=== PATIENT | male | born 1995 | race Caucasian/White ===

== ENCOUNTER 2019-01-27 17:59 | Emergency (ER) | payer OTHER ==
[2019-01-27 18:26] VITALS: RESP 16
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
[2019-01-27 20:08] VITALS: BP 126/78; PULSE 62; TEMP 98.1
== END 2019-01-27 20:07 | disposition home or self-care (01) ==
LOC: EC 17:59
DX: F41.9 Anxiety disorder, unspecified (principal); F32.9 Major depressive disorder, single episode, unspecified; R45.4 Irritability and anger; R45.851 Suicidal ideations; K21.9 Gastro-esophageal reflux disease without esophagitis; Z87.891 Personal history of nicotine dependence; Z79.899 Other long term (current) drug therapy
CPT/HCPCS: 99285

== ENCOUNTER 2019-02-14 12:02 | Inpatient (IN) | payer MEDICAID, OTHER ==
--- NOTE | 2019-02-14 12:41 | ED ---
General Adult HPI - General Chief complaint: Psychiatric Symptoms Stated complaint: Mental Health Time Seen by Provider: 02/14/19 12:11 Source: patient, RN notes reviewed Mode of arrival: ambulatory Limitations: no limitations - History of Present Illness Initial comments: 23-year-old male presents for evaluation of suicidal ideation. Patient has had ongoing suicidal thoughts for one year however over the past several days this has intensified. He's had thoughts of harming himself as well as his brother. He plans to cut himself in an attempt at suicide. Denies any self injury today. Denies any ingestion. Denies alcohol. He is currently on Zoloft which she states she has prescribed. He does have previous psychiatric history and has been evaluated in the emergency department with suicidal ideation previously. - Related Data Home Medications Medication Instructions Recorded Confirmed Omeprazole 20 mg PO DAILY PRN 01/27/19 02/14/19 Sertraline [Zoloft] 50 mg PO DAILY 01/27/19 02/14/19 Allergies Allergy/AdvReac Type Severity Reaction Status Date / Time No Known Allergies Allergy Verified 02/14/19 13:18 Review of Systems ROS Statement: Those systems with pertinent positive or pertinent negative responses have been documented in the HPI. ROS Other: All systems not noted in ROS Statement are negative. Past Medical History Past Medical History: GERD/Reflux History of Any Multi-Drug Resistant Organisms: None Reported Past Surgical History: Coronary Bypass/CABG Additional Past Surgical History / Comment(s): mastoid cyst and cabg as Past Psychological History: Depression Smoking Status: Former smoker Past Alcohol Use History: None Reported Past Drug Use History: Marijuana General Exam Limitations: no limitations General appearance: alert, in no apparent distress Head exam: Present: atraumatic, normocephalic Eye exam: Present: normal appearance, PERRL ENT exam: Present: normal exam Neck exam: Present: normal inspection. Absent: tenderness, meningismus Respiratory exam: Present: normal lung sounds bilaterally. Absent: respiratory distress, wheezes Cardiovascular Exam: Present: regular rate, normal rhythm GI/Abdominal exam: Present: soft. Absent: distended, tenderness, guarding Extremities exam: Present: normal inspection, normal capillary refill. Absent: pedal edema Neurological exam: Present: alert, oriented X3, CN II-XII intact. Absent: motor sensory deficit Psychiatric exam: Present: depressed, suicidal ideation Skin exam: Present: warm, dry, intact. Absent: cyanosis, diaphoretic Course Vital Signs 02/14/19 12:09 Temperature 98.5 F Pulse Rate 88 Respiratory 16 Rate Blood Pressure 127/62 O2 Sat by Pulse 98 Oximetry - Reevaluation(s) Reevaluation #1: 02/14/19 12:40 Patient medically cleared awaiting EPS evaluation. Medical Decision Making - Medical Decision Making 23-year-old male presenting for suicidal ideation depression. Patient is medically cleared. He was evaluated by EPS, will be admitted for further psychiatric evaluation and treatment Disposition Clinical Impression: Depression, Suicidal ideation Disposition: ADMITTED IP TO THIS [facility] Condition: Stable Is patient prescribed a controlled substance at d/c from ED?: No Decision to Admit Reason: Admit from EC Decision Date: 02/14/19 Decision Time: 14:38
[2019-02-14] MEDS ORDERED: MAGNESIUM HYDROXIDE 2,400 MG/10 ML CUP PO PRN (13:51)
[2019-02-14] MEDS ORDERED: MAG HYDROX/AL HYDROX/SIMETH 30 ML CUP PO PRN (13:51)
[2019-02-14] MEDS ORDERED: ACETAMINOPHEN TAB 325 MG TAB PO PRN (13:51)
[2019-02-14] MEDS ORDERED: LORazepam 1 MG TAB PO PRN (13:51)
[2019-02-14] MEDS ORDERED: NICOTINE 14MG/24HR PATCH TRANSDERM STA (16:13)
[2019-02-15 11:18] LABS: HCT 53.1 % (39.0-53.0); HGB 17.6 gm/dL (13.0-17.5); MCH 28.8 pg (25.0-35.0); MCHC 33.2 g/dL (31.0-37.0); MCV 86.6 fL (80.0-100.0); Mean Platelet Volume 7.1; Platelet Count 180 k/uL (150-450); RBC 6.13 m/uL (4.30-5.90); RDW 13.1 % (11.5-15.5); WBC 3.9 k/uL (3.8-10.6)
[2019-02-15 11:29] LABS: ALT 24 U/L (21-72); AST 19 U/L (17-59); Albumin 5.2 g/dL (3.5-5.0); Alkaline Phosphatase 73 U/L (38-126); Anion Gap 9 mmol/L; Blood Urea Nitrogen 16 mg/dL (9-20); Calcium 10.3 mg/dL (8.4-10.2); Carbon Dioxide 30 mmol/L (22-30); Chloride 103 mmol/L (98-107); Cholesterol 164 mg/dL (<200); Glucose 80 mg/dL (74-99); HDL Cholesterol 46 mg/dL (40-60); LDL Cholesterol,Calculated 102 mg/dL (0-99); Potassium 4.3 mmol/L (3.5-5.1); Sodium 142 mmol/L (137-145); Total Bilirubin 1.8 mg/dL (0.2-1.3); Triglycerides 81 mg/dL (<150)
[2019-02-15 12:33] LABS: Band Neutrophils % 2 %; Lymphocytes # (M) 0.43 k/uL (1.0-4.8); Monocytes # (M) 0.31 k/uL (0-1.0); Neutrophils % (M) 74 %; Nucleated Red Blood Cells 0 /100 WBC (0-0); Total Cells Counted 100
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
[2019-02-15 18:19] LABS: Hemoglobin A1C 5.3 % (4.0-6.0)
[2019-02-15] MEDS ORDERED: lamoTRIgine 25 MG TAB PO SCH (21:00)
[2019-02-15] MEDS ORDERED: SERTRALINE 25 MG TAB PO SCH (21:00)
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
[2019-02-16] MEDS: NICOTINE 21MG/24HR PATCH TRANSDERM SCH (14:48)
[2019-02-16] MEDS: SERTRALINE 100 MG TAB PO SCH (20:52)
[2019-02-16] MEDS: lamoTRIgine 25 MG TAB PO SCH (20:52)
[2019-02-17 06:45] VITALS: PULSE 68; RESP 16
[2019-02-17] MEDS: NICOTINE 21MG/24HR PATCH TRANSDERM SCH (09:16)
[2019-02-17] MEDS: lamoTRIgine 25 MG TAB PO SCH (09:17)
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
[2019-02-17] MEDS ORDERED: PANTOPRAZOLE 40 MG TABLET PO PRN (17:19)
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
[2019-02-17] MEDS: lamoTRIgine 100 MG TAB PO SCH (20:53)
[2019-02-17] MEDS: SERTRALINE 100 MG TAB PO SCH (20:53)
[2019-02-17] MEDS: SYMBICORT 160-4.5 MCG INHALER INHALATION SCH (21:02)
[2019-02-17] MEDS: ALBUTEROL INHALER 60 PUFF/8 GM INHALER INHALATION SCH (21:02)
[2019-02-18 06:52] VITALS: BP 117/73; TEMP 97.9
[2019-02-18] MEDS: lamoTRIgine 100 MG TAB PO SCH (08:57)
[2019-02-18] MEDS: NICOTINE 21MG/24HR PATCH TRANSDERM SCH (08:57)
[2019-02-18] MEDS: ALBUTEROL INHALER 60 PUFF/8 GM INHALER INHALATION SCH ×2 (09:17→13:23)
[2019-02-18] MEDS: SYMBICORT 160-4.5 MCG INHALER INHALATION SCH (09:17)
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
== END 2019-02-18 14:49 | disposition home or self-care (01) | DRG 881 ==
LOC: EC 12:02 → 3MHU 13:36
PROVIDERS: ADMIT Psychiatry & Neurology Psychiatry; ATTEND Psychiatry & Neurology Psychiatry
DX: F32.9 Major depressive disorder, single episode, unspecified (principal); R45.851 Suicidal ideations; J45.901 Unspecified asthma with (acute) exacerbation; F41.9 Anxiety disorder, unspecified; K21.9 Gastro-esophageal reflux disease without esophagitis; R45.850 Homicidal ideations; X58.XXXA Exposure to other specified factors, initial encounter; Y93.83 Activity, rough housing and horseplay; Z79.899 Other long term (current) drug therapy; Z95.1 Presence of aortocoronary bypass graft; F19.10 Other psychoactive substance abuse, uncomplicated; F17.210 Nicotine dependence, cigarettes, uncomplicated
CPT/HCPCS: 80053; 80061; 82075; 83036; 84443; 85025; 99285

== ENCOUNTER 2019-06-07 11:19 | Emergency (ER) | payer OTHER ==
[2019-06-07 11:38] VITALS: RESP 18; TEMP 98.5
--- NOTE | 2019-06-07 12:15 | ED ---
General Adult HPI - General Chief complaint: Psychiatric Symptoms Stated complaint: Depression Time Seen by Provider: 06/07/19 11:44 Source: patient, RN notes reviewed Mode of arrival: ambulatory Limitations: no limitations - History of Present Illness Initial comments: Patient is a pleasant 23-year-old male presenting to the emergency Department with complaints of depression. Patient lost his job and lost his residence. Patient was staying with people that are bad for him. Patient does have suicidal thoughts. Patient did attempt to kill himself by drinking in breathing only nicotine and not oxygen approximately 10 days ago. No homicidal thoughts. No physical complaints. Occasional alcohol use. Patient has medical marijuana card, otherwise no street drugs. Patient does have a sort of auditory hallucination where he hears himself trying him for things that are wrong with him. - Related Data Home Medications Medication Instructions Recorded Confirmed Sertraline [Zoloft] 100 mg PO DAILY@2100 06/07/19 06/07/19 Laura's Wort 150 mg PO DAILY 06/07/19 06/07/19 Previous Rx's Medication Instructions Recorded lamoTRIgine [LaMICtal] 100 mg PO BID 30 Days #60 tab 02/18/19 Allergies Allergy/AdvReac Type Severity Reaction Status Date / Time No Known Allergies Allergy Verified 06/07/19 11:49 Review of Systems ROS Statement: Those systems with pertinent positive or pertinent negative responses have been documented in the HPI. ROS Other: All systems not noted in ROS Statement are negative. Constitutional: Denies: fever Eyes: Denies: eye pain ENT: Denies: ear pain Respiratory: Denies: cough Cardiovascular: Denies: chest pain Endocrine: Denies: fatigue Gastrointestinal: Denies: abdominal pain Genitourinary: Denies: dysuria Musculoskeletal: Denies: back pain Skin: Denies: rash Neurological: Denies: weakness Psychiatric: Reports: as per HPI, depression, suicidal thoughts Past Medical History Past Medical History: GERD/Reflux History of Any Multi-Drug Resistant Organisms: None Reported Past Surgical History: Coronary Bypass/CABG Additional Past Surgical History / Comment(s): mastoid cyst and cabg as Past Psychological History: Depression Smoking Status: Former smoker Past Alcohol Use History: None Reported Past Drug Use History: Marijuana General Exam Limitations: no limitations General appearance: alert, in no apparent distress Head exam: Present: atraumatic Eye exam: Present: normal appearance Neck exam: Present: normal inspection Respiratory exam: Present: normal lung sounds bilaterally Cardiovascular Exam: Present: regular rate, normal rhythm GI/Abdominal exam: Present: soft. Absent: tenderness Extremities exam: Present: normal inspection Neurological exam: Present: alert Psychiatric exam: Present: depressed Skin exam: Present: normal color Course Vital Signs 06/07/19 11:34 Temperature 98.5 F Pulse Rate 85 Respiratory 18 Rate Blood Pressure 100/61 O2 Sat by Pulse 100 Oximetry Medical Decision Making - Medical Decision Making Patient was seen by mental health services with plan for discharge. They did arrange follow-up. Patient reevaluated and does contract for safety. Disposition Clinical Impression: Depression Disposition: HOME SELF-CARE Condition: Stable Instructions (If sedation given, give patient instructions): Depression (ED) Additional Instructions: Please follow-up with [facility] tomorrow as directed. Please also follow-up with primary care physician. Return for worsening symptoms, thoughts of self-harm, or other concerns. Is patient prescribed a controlled substance at d/c from ED?: No Referrals: Armand Tilley MD [Primary Care Provider] - 1-2 days Time of Disposition: 13:38
[2019-06-07 14:10] VITALS: BP 102/58; PULSE 75
== END 2019-06-07 14:05 | disposition home or self-care (01) ==
LOC: EC 11:19
DX: F32.9 Major depressive disorder, single episode, unspecified (principal); R45.851 Suicidal ideations; R44.0 Auditory hallucinations; Z95.1 Presence of aortocoronary bypass graft; Z87.891 Personal history of nicotine dependence; Z79.899 Other long term (current) drug therapy
CPT/HCPCS: 82075; 99284

== ENCOUNTER 2019-06-17 23:00 | Emergency (ER) | payer OTHER ==
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
--- NOTE | 2019-06-18 00:58 | XR ---
EXAM: XR Right Hand Complete, 3 or More Views CLINICAL HISTORY: ITS.REASON XR Reason: Pain TECHNIQUE: Frontal, lateral and oblique views of the right hand. COMPARISON: None. FINDINGS: Bones/joints: Unremarkable. No acute fracture. No dislocation. Soft tissues: Unremarkable. No radiopaque foreign body. IMPRESSION: No acute osseous abnormality. If there is clinical concern for radiographically occult fracture, consider repeat radiographs in 7-10 days.
[2019-06-18] MEDS ORDERED: IBUPROFEN 600 MG TAB PO STA (05:19)
[2019-06-18 06:12] VITALS: BP 120/82; PULSE 78; RESP 18; TEMP 98
== END 2019-06-18 06:31 | disposition home or self-care (01) ==
LOC: EC 23:00
DX: S69.91XA Unspecified injury of right wrist, hand and finger(s), initial encounter (principal); F39 Unspecified mood [affective] disorder; R45.851 Suicidal ideations; F17.200 Nicotine dependence, unspecified, uncomplicated; Z79.899 Other long term (current) drug therapy; X83.8XXA Intentional self-harm by other specified means, initial encounter; Y92.009 Unspecified place in unspecified non-institutional (private) residence as the place of occurrence of the external cause
CPT/HCPCS: 82075; 99284

== ENCOUNTER 2021-08-09 02:20 | Emergency (ER) | payer OTHER ==
[2021-08-09 02:26] VITALS: BP 133/85; PULSE 74; RESP 16; TEMP 98.7
[2021-08-09] MEDS ORDERED: TOPICAL SKIN ADHESIVE 1 EACH AMP TOPICAL ONE (02:38)
[2021-08-09] MEDS ORDERED: DIPH,PERTUS(ACELL)TETVAC-LF 0.5 ML VIAL IM ONE (02:41)
--- NOTE | 2021-08-09 03:06 | ED ---
Fall HPI - General Chief Complaint: Fall Stated Complaint: Head laceration Time Seen by Provider: 08/09/21 02:32 Source: patient, EMS Mode of arrival: EMS - History of Present Illness Initial Comments: 's patient is a 25-year-old man who presents to be evaluate for scalp laceration. Patient had ground-level fall tonight and struck his head against furniture. No loss consciousness. Denies significant head or neck pain no other trauma. States last tetanus shot unknown. 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 Witnessed: no Place Fall Occurred: home Loss of Consciousness: none Prolonged Down Time?: no Symptoms Prior to Fall: none Location: head Severity: mild Context: tripped/slipped Associated Symptoms: denies - Related Data Home Medications Medication Instructions Recorded Confirmed Laura's Wort 150 mg PO DAILY 06/07/19 06/17/19 Previous Rx's Medication Instructions Recorded Ibuprofen [Motrin] 600 mg PO Q8HR PRN #20 tab 06/18/19 Allergies Allergy/AdvReac Type Severity Reaction Status Date / Time No Known Allergies Allergy Verified 06/17/19 23:21 Review of Systems ROS Statement: Those systems with pertinent positive or pertinent negative responses have been documented in the HPI. ROS Other: All systems not noted in ROS Statement are negative. Constitutional: Denies: fever, weakness Eyes: Denies: eye pain, vision change ENT: Denies: ear pain, hearing loss, epistaxis Respiratory: Denies: dyspnea Cardiovascular: Denies: chest pain, syncope Gastrointestinal: Denies: abdominal pain, vomiting Skin: Reports: as per HPI Neurological: Denies: headache Past Medical History Past Medical History: GERD/Reflux History of Any Multi-Drug Resistant Organisms: None Reported Past Surgical History: Coronary Bypass/CABG Additional Past Surgical History / Comment(s): mastoid cyst and cabg as infant Past Psychological History: Bipolar, Depression Smoking Status: Vaper Past Alcohol Use History: None Reported Past Drug Use History: Marijuana General Exam Limitations: no limitations General appearance: alert, in no apparent distress Head exam: Present: normocephalic, other (Proximally 3 cm laceration to scalp. No bony tenderness or deformity) Eye exam: Present: normal appearance, PERRL, EOMI. Absent: scleral icterus, conjunctival injection, nystagmus ENT exam: Present: normal oropharynx, TM's normal bilaterally Neck exam: Present: normal inspection, full ROM. Absent: tenderness Respiratory exam: Present: normal lung sounds bilaterally. Absent: respiratory distress, wheezes, rales, rhonchi, stridor, chest wall tenderness Cardiovascular Exam: Present: regular rate, normal rhythm, normal heart sounds. Absent: systolic murmur, diastolic murmur, rubs, gallop Neurological exam: Present: alert, oriented X3, CN II-XII intact. Absent: motor sensory deficit Skin exam: Present: warm, dry, intact, normal color, other (Laceration as above) Course Vital Signs 08/09/21 02:22 Temperature 98.7 F Pulse Rate 74 Respiratory 16 Rate Blood Pressure 133/85 O2 Sat by Pulse 97 Oximetry Procedures - Laceration Laceration #1 Consent Obtained: verbal consent Indication: laceration Site: scalp Size (cm): 3 Description: linear Depth: simple, single layer Type of Sutures: other (Skin adhesive) Patient Tolerated Procedure: well, no complications Disposition Clinical Impression: Fall, Scalp laceration Disposition: HOME SELF-CARE Condition: Good Instructions (If sedation given, give patient instructions): Skin Adhesive Care (ED) Is patient prescribed a controlled substance at d/c from ED?: No Referrals: Miguel Lua Jr, [Primary Care Provider] - 1-2 days
== END 2021-08-09 03:28 | disposition home or self-care (01) ==
LOC: EC 02:20
DX: S01.01XA Laceration without foreign body of scalp, initial encounter (principal); F17.290 Nicotine dependence, other tobacco product, uncomplicated; F12.90 Cannabis use, unspecified, uncomplicated; Z79.1 Long term (current) use of non-steroidal anti-inflammatories (NSAID); W01.190A Fall on same level from slipping, tripping and stumbling with subsequent striking against furniture, initial encounter; Y92.009 Unspecified place in unspecified non-institutional (private) residence as the place of occurrence of the external cause
CPT/HCPCS: 12002; 90471; 90715; 99284

== ENCOUNTER 2022-02-01 11:55 | Inpatient (IN) | payer MEDICAID, OTHER ==
--- NOTE | 2022-02-01 12:31 | ED ---
General Adult HPI - General Chief complaint: Psychiatric Symptoms Stated complaint: Mental Health Time Seen by Provider: 02/01/22 12:20 Source: patient, RN notes reviewed, old records reviewed Mode of arrival: ambulatory Limitations: no limitations - History of Present Illness Initial comments: This is a well-appearing 26-year-old male that presents to the emergency room with complaints of depression and suicidal ideation. Patient states he does not have a plan. He was in the hospital last week [facility] for the same depression but states was only given phone number for mobile crisis. He does have an appointment on the of this month. Patient states that he does need medication for his bipolar and his depression but is currently not taking a nything. He does smoke marijuana occasionally but he denies any alcohol or other drug use. Denies any fevers, no nausea vomiting diarrhea. He states he has had this increased stress with a baby. He does live with baby and mom. He was brought in by his mother and is being petitioned per nurse. -: week(s) (1) Severity scale (1-10): 0 Associated Symptoms: denies other symptoms Treatments Prior to Arrival: none - Related Data Home Medications Medication Instructions Recorded Confirmed No Known Home Medications 02/01/22 02/01/22 Allergies Allergy/AdvReac Type Severity Reaction Status Date / Time No Known Allergies Allergy Verified 02/01/22 16:27 Review of Systems ROS Statement: Those systems with pertinent positive or pertinent negative responses have been documented in the HPI. ROS Other: All systems not noted in ROS Statement are negative. Past Medical History Past Medical History: GERD/Reflux History of Any Multi-Drug Resistant Organisms: None Reported Past Surgical History: Coronary Bypass/CABG Additional Past Surgical History / Comment(s): mastoid cyst and cabg as Past Psychological History: Bipolar, Depression Smoking Status: Vaper Past Alcohol Use History: Rare Past Drug Use History: Marijuana General Exam Limitations: no limitations General appearance: alert, in no apparent distress Head exam: Present: atraumatic, normocephalic, normal inspection Eye exam: Present: normal appearance. Absent: scleral icterus, conjunctival injection ENT exam: Present: normal exam, normal oropharynx, mucous membranes moist Neck exam: Present: normal inspection, full ROM. Absent: tenderness, meningismus Respiratory exam: Present: normal lung sounds bilaterally. Absent: respiratory distress, accessory muscle use Cardiovascular Exam: Present: regular rate GI/Abdominal exam: Present: soft. Absent: distended, tenderness Extremities exam: Present: normal capillary refill Back exam: Present: normal inspection, full ROM. Absent: tenderness, CVA tenderness (R), CVA tenderness (L), rash noted Neurological exam: Present: alert, oriented X3, normal gait Psychiatric exam: Present: depressed, suicidal ideation. Absent: agitated, anxious, flat affect, homicidal ideation Skin exam: Present: warm, dry, normal color. Absent: cyanosis, diaphoretic Course Vital Signs 02/01/22 02/01/22 12:14 14:00 Temperature 98.2 F Pulse Rate 70 76 Respiratory 16 18 Rate Blood Pressure 121/82 124/88 O2 Sat by Pulse 97 98 Oximetry Medical Decision Making - Medical Decision Making 26-year-old male presents with depression and suicidal ideation. He denies any plan. He was petitioned by his mother for inpatient treatment. Case was signed out to Dr. Mathias. Disposition Referrals: Miguel Lua Jr, [Primary Care Provider] - 1-2 days
[2022-02-01] MEDS ORDERED: MAG HYDROX/AL HYDROX/SIMETH 30 ML CUP PO PRN (20:55)
[2022-02-01] MEDS ORDERED: MAGNESIUM HYDROXIDE 2,400 MG/10 ML CUP PO PRN (20:55)
[2022-02-01] MEDS ORDERED: HALOPERIDOL LACTATE 5 MG/ML 1 ML VIAL IM PRN (20:55)
[2022-02-01] MEDS ORDERED: LORazepam 2 MG/ML INJ IM PRN (20:57)
[2022-02-01] MEDS ORDERED: haloperidoL 5 MG TAB PO PRN (20:58)
[2022-02-01] MEDS: NICOTINE 21MG/24HR PATCH TRANSDERM SCH (22:55)
[2022-02-02] MEDS: NICOTINE 21MG/24HR PATCH TRANSDERM SCH (08:42)
--- NOTE | 2022-02-02 10:24 | P.CONS ---
History of Present Illness - Reason for Consult Consult date: 02/02/22 Medical management of tobaccoism - History of Present Illness This is a 26-year-old male well-known to my practice. Recently celebrated the of her child 3 months ago. He indicates the stress of this and being without his medications has effected his bipolar depression. His had increased sadness issues with this. He was in the emergency room last week and given on for the mobile crisis Center. He does have an appointment next week with them, but his mood was quite significantly depressed. His mother brought him in the emergency room and was petitioning him due to his suicidal ideation. Medically he smokes cigarettes about a pack a day. We discussed this today. He does smoke marijuana on occasion. Review of Systems All systems: negative Past Medical History Past Medical History: GERD/Reflux History of Any Multi-Drug Resistant Organisms: None Reported Past Surgical History: Coronary Bypass/CABG Additional Past Surgical History / Comment(s): mastoid cyst and cabg as Past Anesthesia/Blood Transfusion Reactions: No Reported Reaction Past Psychological History: Bipolar, Depression Smoking Status: Vaper Past Alcohol Use History: Rare Past Drug Use History: Marijuana Additional Drug Use History / Comment(s): admits to using acid on a weekend basis. Last time used three months ago Medications and Allergies Home Medications Medication Instructions Recorded Confirmed Type No Known Home Medications 02/01/22 02/01/22 History Allergies Allergy/AdvReac Type Severity Reaction Status Date / Time No Known Allergies Allergy Verified 02/01/22 16:27 Physical Exam Vitals: Vital Signs Temp Pulse Pulse Resp BP BP Pulse Ox 02/02/22 06:51 97.8 F 68 96/56 99 02/02/22 06:49 97.8 F 68 96/56 99 02/01/22 22:15 97.7 F 69 20 121/77 02/01/22 20:55 78 16 138/92 98 02/01/22 14:00 76 18 124/88 98 02/01/22 12:14 98.2 F 70 16 121/82 97 Intake and Output 02/01/22 02/02/22 02/02/22 22:59 06:59 14:59 Other: Weight 72.575 kg GENERAL: Well-appearing, thin and in no acute distress. HEAD: Atraumatic, normocephalic. EYES: Pupils equal round and reactive to light, extraocular movements intact, sclera anicteric, conjunctiva are normal. ENT:nares patent, oropharynx clear without exudates. Moist mucous membranes. NECK: Normal range of motion, supple without lymphadenopathy or JVD, no thyromegaly LUNGS: Breath sounds clear to auscultation bilaterally and equal. No wheezes rales or rhonchi. HEART: Regular rate and rhythm without murmurs, rubs or gallops.S1S2 Normal ABDOMEN: Soft, nontender, normoactive bowel sounds. No guarding, no rebound. No masses appreciated. EXTREMITIES: Normal range of motion, no pitting or edema. No clubbing or cyanosis. NEUROLOGICAL: Cranial nerves II through XII grossly intact. Normal speech, normal gait. PSYCH: Normal mood, normal affect. SKIN: Warm, Dry, normal turgor, no rashes or lesions noted. Assessment and Plan (1) Major depression Current Visit: No Status: Acute Priority: Low Code(s): F32.9 - MAJOR DEPRESSIVE DISORDER, SINGLE EPISODE, UNSPECIFIED SNOMED Code(s): 655237348 (2) Suicidal ideation Current Visit: No Status: Acute Code(s): R45.851 - SUICIDAL IDEATIONS SNOMED Code(s): 2349734 (3) Cigarette nicotine dependence Current Visit: Yes Status: Acute Code(s): F17.210 - NICOTINE DEPENDENCE, CIGARETTES, UNCOMPLICATED SNOMED Code(s): 57650790 (4) Marijuana smoker Current Visit: Yes Status: Acute Code(s): F12.90 - CANNABIS USE, UNSPECIFIED, UNCOMPLICATED SNOMED Code(s): 495236835 Plan: Medically he appears stable, however there is no laboratory studies to evaluate his thyroid blood count and blood chemistries. These have been ordered but are pending. Staff have applied a nicotine patch We'll follow him with you as needed. Thank you very much for allowing us to participate in this patient's care.
[2022-02-02 11:49] LABS: ALT 13 U/L (4-49); AST 24 U/L (17-59); African American GFR (CKD) >90 (>60 ml/min/1.73 sqM); Alkaline Phosphatase 50 U/L (38-126); Anion Gap 9 mmol/L; Blood Urea Nitrogen 15 mg/dL (9-20); Calcium 9.8 mg/dL (8.4-10.2); Carbon Dioxide 30 mmol/L (22-30); Chloride 101 mmol/L (98-107); Glucose 97 mg/dL (74-99); Non-African American GFR(CKD) >90 (>60 ml/min/1.73 sqM); Potassium 4.7 mmol/L (3.5-5.1); Sodium 140 mmol/L (137-145); Total Bilirubin 2.5 mg/dL (0.2-1.3); Total Protein 7.9 g/dL (6.3-8.2)
[2022-02-02 11:53] LABS: Basophils # (A) 0.1 k/uL (0-0.2); Basophils % (A) 1 %; Eosinophils # (A) 0.1 k/uL (0-0.7); Eosinophils % (A) 1 %; HCT 53.7 % (39.0-53.0); HGB 18.1 gm/dL (13.0-17.5); Lymphocytes # (A) 1.3 k/uL (1.0-4.8); Lymphocytes % (A) 22 %; MCH 29.7 pg (25.0-35.0); MCHC 33.7 g/dL (31.0-37.0); MCV 88.2 fL (80.0-100.0); Mean Platelet Volume 7.6; Monocytes # (A) 0.5 k/uL (0-1.0); Monocytes % (A) 8 %; Neutrophils # (A) 3.9 k/uL (1.3-7.7); Neutrophils % (A) 65 %; Platelet Count 205 k/uL (150-450); RBC 6.08 m/uL (4.30-5.90); RDW 12.9 % (11.5-15.5)
[2022-02-02 13:55] LABS: Appearance,Urine Clear (Clear); Bilirubin,Urine Negative (Negative); Blood,Urine Negative (Negative); Color,Urine Yellow; Glucose,Urine (UA) Negative (Negative); Ketones,Urine Negative (Negative); Leukocyte Esterase,Urine Trace (Negative); Mucus,Urine Moderate /hpf; Nitrite,Urine Negative (Negative); Protein,Urine Negative (Negative); RBC,Urine <1 /hpf (0-5); Specific Gravity,Urine 1.026 (1.001-1.035); WBC,Urine 2 /hpf (0-5)
[2022-02-02] MEDS: ACETAMINOPHEN TAB 325 MG TAB PO PRN (15:31)
--- NOTE | 2022-02-02 17:04 | P.HP ---
Psychiatric H&P - . H&P Date: 02/02/22 History & Physical: IDENTIFYING DATA: Patient is a 26-year-old male brought to the ER by police on a petition. HPI: He is a 26-year-old male who was brought to the ER on a petition completed by his aunt. Per petition, quotation palmer trying to kill himself with a knife, harming others, putting his head open by pounding into the door frame trying to get others to harm him, bout of rage." Per clinical certificate completed in the emergency room, patient is "suicidal, stated he wanted to kill himself, depressed." On my assessment, patient is calm, cooperative and polite. He reports depressed mood, disrupted sleep, interest is affected but not drastically, energy is moderate to low, concentration is difficult to focus, appetite is fair. He was having suicidal ideations yesterday but denies suicidal ideations today. Denies excessive guilt. He reports high anxiety because this is the first time he has been away from his family since the baby was born. He denies auditory or visual hallucinations. He denies homicidal ideations, plan or intent. He denies ever having thoughts of harming others and reports his aunt must have just put that on the petition because she misunderstood what he said. PAST PSYCHIATRIC HISTORY: Diagnosis: Depression, anxiety, "bipolar-I don't remember", Borderline personality disorder Hospitalizations: 2019 - [facility] Outpatient: [facility]-appointment on 02/05/2022 Past Medications: Zoloft and Lamictal. He reports Lamictal was working but he stopped it because he ran out of it while in rehab. He reports the Lamictal helped with emotion regulation. He is not currently on any medications. He last took medications over a year ago. Past Medical History: None reported. Past Surgical History: VSD, ear surgery in childhood CURRENT MEDICATIONS: Active Medications Acetaminophen (Acetaminophen Tab 325 Mg Tab) 650 mg PO Q4HR PRN PRN Reason: Pain/Discomfort Last Admin: 02/02/22 15:31 Dose: 650 mg Documented by: Al Hydroxide/Mg Hydroxide (Mag Hydrox/Al Hydrox/Simeth 30 Ml Cup) 30 ml PO Q4HR PRN PRN Reason: GI Upset Haloperidol (Haloperidol 5 Mg Tab) 5 mg PO Q6HR PRN PRN Reason: Agitation or Acute Psychosis Haloperidol Lactate (Haloperidol Lactate 5 Mg/Ml 1 Ml Vial) 5 mg IM Q6HR PRN PRN Reason: Agitation or Acute Psychosis Lorazepam (Lorazepam 1 Mg Tab) 2 mg PO Q6HR PRN PRN Reason: Anxiety, Agitation Lorazepam (Lorazepam 2 Mg/Ml Inj) 2 mg IM Q6HR PRN PRN Reason: Agitation or Acute Anxiety Magnesium Hydroxide (Magnesium Hydroxide 2,400 Mg/10 Ml Cup) 2,400 mg PO DAILY PRN PRN Reason: Constipation Nicotine (Nicotine 21mg/24hr Patch) 1 patch TRANSDERM DAILY JAMES Last Admin: 02/02/22 08:42 Dose: 1 patch Documented by: ALLERGIES: Allergies No Known Allergies Allergy (Verified 02/01/22 16:27) CHEMICAL DEPENDENCY HISTORY: Historoy of using LSD, pills (anything I could get my hands on), alcohol from 2017- 2018. Currently uses marijuana once a week. FAMILY PSYCHIATRIC/SUBSTANCE USE HISTORY: Father is an alcoholic. SOCIAL HISTORY: Lives with bhanu and his 3 month old baby boy. MENTAL STATUS EXAM: General Appearance: Patient is a thin, male who appears his stated age. Patient appears to have fair grooming. Orientation: He is alert and oriented to person, place, time and situation. Behavior: Patient is seated without any agitated behavior. Average eye contact. Speech: Patient's speech is fluent and nonpressured. Mood/Affect: Patient reports his mood is depressed, affect is congruent. Suicidality/Homicidality: Patient denies having any suicidal or homicidal ideation intent or plan. Perceptions: Patient denies any visual hallucinations and denies any auditory hallucinations Though content/process: There is no evidence of any delusional thought content and thought process is linear and goal-directed. Memory and concentration: Intact Insight: fair Judgment: fair to poor STRENGTHS/WEAKNESSES: Strength is "I wear my hear on my sleeve, I care about people." Weakness is that "I have anger issues". INTELLECT: Average IMPRESSIONS: Major depressive disorder, recurrent, severe without psychotic features Unspecified anxiety disorder Borderline personality disorder PLAN: Patient has signed formal voluntary for admission to [facility] for stabilization of psychiatric symptoms and safety. Medications: Start Lexapro 5 mg QHS for depression/anxiety. Start Lamictal 25 mg QHS for mood. He will be continued on: Nicotine patch for nicotine replacement therapy. Haldol 5 mg by mouth/IM every 6 hours when necessary for severe agitation or acute psychosis. Ativan 2 mg by mouth/IM every 6 hours when necessary for severe agitation or acute anxiety. Educate on the importance of avoiding mood altering substances. Admission labs: CBC with differential, CMP, hemoglobin A1c, hepatic function panel, lipid panel, TSH and urinalysis. Internal medicine consult to perform medical evaluation and physical. Social work on board for discharge planning. Encourage patient to participate in groups and to work on coping skills. Arielle Narvaez MD Psychiatrist Allergies Allergy/AdvReac Type Severity Reaction Status Date / Time No Known Allergies Allergy Verified 02/01/22 16:27 Vital Signs Temp 97.8 F 02/02/22 06:51 Pulse 68 02/02/22 06:51 Resp 20 02/01/22 22:15 BP 96/56 02/02/22 06:51 Pulse Ox 99 02/02/22 06:51 Intake & Output 02/01/22 02/02/22 02/02/22 18:59 06:59 18:59 Weight 72.575 kg 72.575 kg Laboratory Last Values WBC 6.0 k/uL (3.8-10.6) 02/02/22 11:00 RBC 6.08 m/uL (4.30-5.90) H 02/02/22 11:00 Hgb 18.1 gm/dL (13.0-17.5) H 02/02/22 11:00 Hct 53.7 % (39.0-53.0) H 02/02/22 11:00 MCV 88.2 fL (80.0-100.0) 02/02/22 11:00 MCH 29.7 pg (25.0-35.0) 02/02/22 11:00 MCHC 33.7 g/dL (31.0-37.0) 02/02/22 11:00 RDW 12.9 % (11.5-15.5) 02/02/22 11:00 Plt Count 205 k/uL (150-450) 02/02/22 11:00 MPV 7.6 02/02/22 11:00 Neutrophils % 65 % 02/02/22 11:00 Lymphocytes % 22 % 02/02/22 11:00 Monocytes % 8 % 02/02/22 11:00 Eosinophils % 1 % 02/02/22 11:00 Basophils % 1 % 02/02/22 11:00 Neutrophils # 3.9 k/uL (1.3-7.7) 02/02/22 11:00 Lymphocytes # 1.3 k/uL (1.0-4.8) 02/02/22 11:00 Monocytes # 0.5 k/uL (0-1.0) 02/02/22 11:00 Eosinophils # 0.1 k/uL (0-0.7) 02/02/22 11:00 Basophils # 0.1 k/uL (0-0.2) 02/02/22 11:00 Sodium 140 mmol/L (137-145) 02/02/22 11:00 Potassium 4.7 mmol/L (3.5-5.1) 02/02/22 11:00 Chloride 101 mmol/L (98-107) 02/02/22 11:00 Carbon Dioxide 30 mmol/L (22-30) 02/02/22 11:00 Anion Gap 9 mmol/L 02/02/22 11:00 BUN 15 mg/dL (9-20) 02/02/22 11:00 Creatinine 0.96 mg/dL (0.66-1.25) 02/02/22 11:00 Est GFR (CKD-EPI)AfAm >90 (>60 ml/min/1.73 sqM) 02/02/22 11:00 Est GFR (CKD-EPI)NonAf >90 (>60 ml/min/1.73 sqM) 02/02/22 11:00 Glucose 97 mg/dL (74-99) 02/02/22 11:00 Calcium 9.8 mg/dL (8.4-10.2) 02/02/22 11:00 Total Bilirubin 2.5 mg/dL (0.2-1.3) H 02/02/22 11:00 AST 24 U/L (17-59) 02/02/22 11:00 ALT 13 U/L (4-49) 02/02/22 11:00 Alkaline Phosphatase 50 U/L (38-126) 02/02/22 11:00 Total Protein 7.9 g/dL (6.3-8.2) 02/02/22 11:00 Albumin 5.0 g/dL (3.5-5.0) 02/02/22 11:00 TSH 0.810 mIU/L (0.465-4.680) 02/02/22 11:00 Urine Color Yellow 02/02/22 13:40 Urine Appearance Clear (Clear) 02/02/22 13:40 Urine pH 6.0 (5.0-8.0) 02/02/22 13:40 Ur Specific [place] 1.026 (1.001-1.035) 02/02/22 13:40 Urine Protein Negative (Negative) 02/02/22 13:40 Urine Glucose (UA) Negative (Negative) 02/02/22 13:40 Urine Ketones Negative (Negative) 02/02/22 13:40 Urine Blood Negative (Negative) 02/02/22 13:40 Urine Nitrite Negative (Negative) 02/02/22 13:40 Urine Bilirubin Negative (Negative) 02/02/22 13:40 Urine Urobilinogen 3.0 mg/dL (<2.0) 02/02/22 13:40 Ur Leukocyte Esterase Trace (Negative) H 02/02/22 13:40 Urine RBC <1 /hpf (0-5) 02/02/22 13:40 Urine WBC 2 /hpf (0-5) 02/02/22 13:40 Urine Mucus Moderate /hpf (None) H 02/02/22 13:40 Coronavirus (PCR) Not Detected (Not Detectd) 02/01/22 18:30 02/02/22 16:29
[2022-02-02 20:26] LABS: Urine Alcohol Negative (Negative); Urine Barbiturate Negative (Negative); Urine Cocaine Negative (Negative); Urine Methadone Negative (Negative); Urine Opiates Negative (Negative); Urine Phencyclidine Negative (Negative)
[2022-02-02] MEDS ORDERED: ESCITALOPRAM 5 MG TAB PO SCH ×2 (21:00)
[2022-02-02] MEDS ORDERED: lamoTRIgine 25 MG TAB PO SCH (21:00)
[2022-02-02] MEDS: lamoTRIgine 25 MG TAB PO SCH (21:20)
[2022-02-02 23:15] LABS: Chol/HDL Ratio 3.31 Ratio; LDL Cholesterol,Calculated 94.9 mg/dL (0.0-131.0); VLDL Calculation 16.72 mg/dL (5.00-40.00)
[2022-02-03 07:08] VITALS: RESP 16
[2022-02-03] MEDS: NICOTINE 21MG/24HR PATCH TRANSDERM SCH (08:28)
[2022-02-03] MEDS ORDERED: lamoTRIgine 25 MG TAB PO SCH (09:00)
[2022-02-03] MEDS ORDERED: ESCITALOPRAM 5 MG TAB PO SCH (09:00)
--- NOTE | 2022-02-03 18:56 | P.PN ---
Progress Note - Text Progress Note Date: 02/03/22 Interval History: Jose was seen in the conference room. He presents with polite and cooperative demeanor. He reports he is a "little shook from what happened earlier", in regards to other patients having outbursts. He reports this increased his anxiety. He has started the Lamictal 25 mg QHS last night and denies any rash today. He also started the Lexapro 5 mg last night and denies medication side effects. He continues to endorse anxiety, reports his anxiety is worse than his depression. He rates his anxiety as a 4/10. He rates his depression as a 2/10 today. At this time patient denies any suicidal or homical ideations, intent or plan. Patient denies any auditory, visual hallucinations, and denies any paranoia or delusions. Patient denies any side effects from the medications and has been compliant with meds. Mental Status Exam: General Appearance: Patient is a thin, male who appears his stated age. Patient appears to have improved hygiene and grooming. Orientation: He is alert and oriented to person, place, time and situation. Behavior: Patient is seated without any agitated behavior. Good eye contact. He frequently moves his legs as self-soothing measure to ease his anxiety. Speech: Patient's speech is fluent and nonpressured. Mood/Affect: Patient reports his mood is anxious, affect is congruent. Suicidality/Homicidality: Patient denies having any suicidal or homicidal ideation intent or plan. Perceptions: Patient denies any visual hallucinations and denies any auditory hallucinations Though content/process: There is no evidence of any delusional thought content and thought process is linear and goal-directed. Memory and concentration: Intact Insight: fair Judgment: fair to poor IMPRESSIONS: Depressive disorder unspecified, rule out bipolar depression versus substance- induced depressive disorder Nicotine dependence Plan: -Patient continues to meet criteria for inpatient psychiatric admission for symptom stabilization and safety. If he continues to stabilize, then can consider discharge early next week. -Medications: Increase Lexapro to 10 mg daily for anxiety/depression. Continue Lamictal 25 mg QHS for mood. -When necessary Ativan and Haldol for agitation/aggression. -NRT - nicotine patch -SW on board for discharge planning. Encouraged the patient to participate in milieu.
[2022-02-03] MEDS: lamoTRIgine 25 MG TAB PO SCH (21:04)
[2022-02-03] MEDS: ESCITALOPRAM 10 MG TAB PO SCH (21:04)
--- NOTE | 2022-02-04 11:36 | P.PN ---
Progress Note - Text Progress Note Date: 02/04/22 Interval History: Patient was seen today for psychiatric follow-up by filing writer. Patient was seen taking part in activities group today and was agreeable to speak to filing writer in the office. He states that he is doing better today with regards to his mood and anxiety. He states that he has been taking the medications and cranes of medications are working. He states that he feels less irritable. He spoke briefly about like him in the hospital and states that he had a "breakdown". He states that he is sleeping fairly and nighttime. He is denying any changes in his appetite today. At this time patient denies any suicidal or homical ideations, intent or plan. Patient denies any auditory, visual hallucinations, and denies any paranoia or delusions. Patient denies any side effects from the medications and has been compliant with meds. Mental Status Exam: General Appearance: Patient is a thin, male who appears his stated age. Patient appears to have improved hygiene and grooming. Behavior: Patient is seated without any agitated behavior. Good eye contact. Speech: Patient's speech is fluent and nonpressured. Mood/Affect: Patient reports his mood is improving, affect is congruent. Suicidality/Homicidality: Patient denies having any suicidal or homicidal evita ation intent or plan. Perceptions: Patient denies any visual hallucinations and denies any auditory hallucinations Though content/process: There is no evidence of any delusional thought content and thought process is linear and goal-directed. Memory and concentration: Intact, alert and oriented 3. Insight/Judgment: Improving mildly IMPRESSIONS: Depressive disorder unspecified, rule out bipolar depression versus substance- induced depressive disorder Cannabis use disorder mild Nicotine dependence Plan: -Patient continues to meet criteria for inpatient psychiatric admission for symptom stabilization and safety. Patient is currently voluntary. -Medications: Lexapro to 10 mg daily for anxiety/depression. Continue Lamictal 25 mg QHS for mood. -When necessary Ativan and Haldol for agitation/aggression. -NRT - nicotine patch -SW on board for discharge planning. Encouraged the patient to participate in milieu. Likely discharge tomorrow. barn worker to reach out to patient's girlfriend to ensure that the house is safe and no guns or weapons.
[2022-02-04] MEDS: ACETAMINOPHEN TAB 325 MG TAB PO PRN (12:40)
[2022-02-04] MEDS: NICOTINE 21MG/24HR PATCH TRANSDERM SCH (16:24)
[2022-02-04] MEDS: lamoTRIgine 25 MG TAB PO SCH (20:57)
[2022-02-04] MEDS: ESCITALOPRAM 10 MG TAB PO SCH (20:57)
[2022-02-04] MEDS: LORazepam 1 MG TAB PO PRN (21:48)
[2022-02-05 06:41] VITALS: BP 117/55; PULSE 64; TEMP 97.5
[2022-02-05] MEDS: NICOTINE 21MG/24HR PATCH TRANSDERM SCH (07:49)
--- NOTE | 2022-02-05 09:46 | P.DS ---
Providers Date of admission: 02/01/22 20:53 Expected date of discharge: 02/05/22 Attending physician: Kaushik Hooks MD Consults: 02/01/22 20:55 Consult Physician Routine Consulting Provider: Miguel Lua Jr Consult Reason/Comments: H and P Do you want consulting provider notified?: Yes Primary care physician: Miguel Lua - Discharge Diagnosis(es) (1) Depressive disorder Current Visit: Yes Status: Acute Priority: High (2) Cannabis use disorder, mild, abuse Current Visit: Yes Status: Acute Priority: Medium (3) Nicotine dependence Current Visit: Yes Status: Acute Priority: Low Hospital Course: Admission HPI: Admission note was completed by Dr Narvaez "Patient is a 26-year-old male brought to the ER by police on a petition. He is a 26-year-old male who was brought to the ER on a petition completed by his aunt. Per petition, quotation palmer trying to kill himself with a knife, harming others, putting his head open by pounding into the door frame trying to get others to harm him, bout of rage." Per clinical certificate completed in the emergency room, patient is "suicidal, stated he wanted to kill himself, depressed." On my assessment, patient is calm, cooperative and polite. He reports depressed mood, disrupted sleep, interest is affected but not drastically, energy is moderate to low, concentration is difficult to focus, appetite is fair. He was having suicidal ideations yesterday but denies suicidal ideations today. Denies excessive guilt. He reports high anxiety because this is the first time he has been away from his family since the baby was born. He denies auditory or visual hallucinations. He denies homicidal ideations, plan or intent. He denies ever having thoughts of harming others and reports his aunt must have just put that on the petition because she misunderstood what he said. " Hospital course: Upon admission to the unit patient was directable and agreeable to commence treatment and signed adult voluntary form . Patient got along well with other patients on the unit and followed unit protocol. Patient was compliant with the medications and denied any side effects throughout hospital course. Patient was started on Lexapro 10 mg daily for mood/anxiety, Lamictal increased to 50 mg daily at bedtime for mood stabilization. Patient spoke of his stressors and engaged in therapy both group and individual. Patient was also seen by medical team for history and physical exam. Throughout the course of the hospitaliza tion patient gradually improved with regards to mood, anxiety, sleep and became more future oriented with improved insight and judgment. On the day of discharge patient denied any suicidal or homicidal ideations intent or plan denied any auditory or visual hallucinations. Patient endorsed wanting to live for his health and family. The patient denied any access to guns or weapons. Patient denied any paranoia and did not endorse any delusions. Patient does have a significant history of substance abuse and was counseled on abstaining from all substances including alcohol and marijuana. Patient was also counseled on the medications and need for regular compliance and was encouraged to follow-up with their outpatient appointment for mental health and also for primary care. Prior to discharge a family meeting will be arranged by bilingual social worker to answer any questions and ensure safety upon discharge. Mental status exam: General Appearance: Patient appears to be thin, stated age is alert, pleasant, and cooperative. Patient is in no acute distress and has improved hygiene and grooming Behavior: Patient is calmly seated without any agitated behavior. Speech: Patient's speech is fluent and nonpressured. Mood/Affect: Patient reports their mood is "good", affect is congruent and euthymic. Suicidality/Homicidality: Patient denies having any suicidal or homicidal ideation intent or plan. Perceptions: Patient denies any auditory or visual hallucinations. Though content/process: There is no evidence of any delusional thought content and thought process is linear and goal-directed. more future oriented Memory and concentration: AOX3, grossly intact for the purposes of this session. Can spell "WORLD" backwards correctly. Judgment and insight: improved with guarded prognosis Impression: Depressive disorder unspecified, rule out bipolar depression versus substance- induced depressive disorder Cannabis use disorder mild Nicotine dependence Plan: -Continue with discharge today as patient has improved and stabilized psychiatrically and is not currently an imminent threat to himself and/or others. -Continue medications: Lexapro 10 mg daily for mood/anxiety, Lamictal 50 mg daily at bedtime for mood stabilization/depression. -Patient was counseled on the need for medication compliance and appropriate follow-up at mental health and also primary care for medical issues. Patient verbalized understanding and agreed. -Social work to arrange for and conduct family meeting to ensure safety upon discharge and answer any questions/concerns. Social work also to arrange for patients follow up appointments with [facility] for psychiatric care along with follow up with primary care provider. -Patient counseled on abstaining from recreational drugs and marijuana and alcohol. Was informed/educated on the adverse effects on their physical and mental health. Patient verbally agreed and understood. -Patient was instructed to return to the hospital or seek immediate medical care if their psychiatric or medical symptoms do worsen or reoccur. Allergies Allergy/AdvReac Type Severity Reaction Status Date / Time No Known Allergies Allergy Verified 02/01/22 16:27 Laboratory Results WBC 6.0 k/uL (3.8-10.6) 02/02/22 11:00 RBC 6.08 m/uL (4.30-5.90) H 02/02/22 11:00 Hgb 18.1 gm/dL (13.0-17.5) H 02/02/22 11:00 Hct 53.7 % (39.0-53.0) H 02/02/22 11:00 MCV 88.2 fL (80.0-100.0) 02/02/22 11:00 MCH 29.7 pg (25.0-35.0) 02/02/22 11:00 MCHC 33.7 g/dL (31.0-37.0) 02/02/22 11:00 RDW 12.9 % (11.5-15.5) 02/02/22 11:00 Plt Count 205 k/uL (150-450) 02/02/22 11:00 MPV 7.6 02/02/22 11:00 Neutrophils % 65 % 02/02/22 11:00 Lymphocytes % 22 % 02/02/22 11:00 Monocytes % 8 % 02/02/22 11:00 Eosinophils % 1 % 02/02/22 11:00 Basophils % 1 % 02/02/22 11:00 Neutrophils # 3.9 k/uL (1.3-7.7) 02/02/22 11:00 Lymphocytes # 1.3 k/uL (1.0-4.8) 02/02/22 11:00 Monocytes # 0.5 k/uL (0-1.0) 02/02/22 11:00 Eosinophils # 0.1 k/uL (0-0.7) 02/02/22 11:00 Basophils # 0.1 k/uL (0-0.2) 02/02/22 11:00 Sodium 140 mmol/L (137-145) 02/02/22 11:00 Potassium 4.7 mmol/L (3.5-5.1) 02/02/22 11:00 Chloride 101 mmol/L (98-107) 02/02/22 11:00 Carbon Dioxide 30 mmol/L (22-30) 02/02/22 11:00 Anion Gap 9 mmol/L 02/02/22 11:00 BUN 15 mg/dL (9-20) 02/02/22 11:00 Creatinine 0.96 mg/dL (0.66-1.25) 02/02/22 11:00 Est GFR (CKD-EPI)AfAm >90 (>60 ml/min/1.73 sqM) 02/02/22 11:00 Est GFR (CKD-EPI)NonAf >90 (>60 ml/min/1.73 sqM) 02/02/22 11:00 Glucose 97 mg/dL (74-99) 02/02/22 11:[address] Glu mg/dL 108 02/02/22 11:00 Hemoglobin A1c 5.4 % (0.0-6.0) 02/02/22 11:00 Calcium 9.8 mg/dL (8.4-10.2) 02/02/22 11:00 Total Bilirubin 2.5 mg/dL (0.2-1.3) H 02/02/22 11:00 AST 24 U/L (17-59) 02/02/22 11:00 ALT 13 U/L (4-49) 02/02/22 11:00 Alkaline Phosphatase 50 U/L (38-126) 02/02/22 11:00 Total Protein 7.9 g/dL (6.3-8.2) 02/02/22 11:00 Albumin 5.0 g/dL (3.5-5.0) 02/02/22 11:00 Triglycerides 83.60 mg/dL (0.00-149.00) 02/02/22 11:00 Cholesterol 160.00 mg/dL (0.00-200.00) 02/02/22 11:00 LDL Cholesterol, Calc 94.9 mg/dL (0.0-131.0) 02/02/22 11:00 VLDL Cholesterol, Calc 16.72 mg/dL (5.00-40.00) 02/02/22 11:00 HDL Cholesterol 48.40 mg/dL (40.00-60.00) 02/02/22 11:00 Cholesterol/HDL Ratio 3.31 Ratio 02/02/22 11:00 TSH 0.810 mIU/L (0.465-4.680) 02/02/22 11:00 Urine Color Yellow 02/02/22 13:40 Urine Appearance Clear (Clear) 02/02/22 13:40 Urine pH 6.0 (5.0-8.0) 02/02/22 13:40 Ur Specific [place] 1.026 (1.001-1.035) 02/02/22 13:40 Urine Protein Negative (Negative) 02/02/22 13:40 Urine Glucose (UA) Negative (Negative) 02/02/22 13:40 Urine Ketones Negative (Negative) 02/02/22 13:40 Urine Blood Negative (Negative) 02/02/22 13:40 Urine Nitrite Negative (Negative) 02/02/22 13:40 Urine Bilirubin Negative (Negative) 02/02/22 13:40 Urine Urobilinogen 3.0 mg/dL (<2.0) 02/02/22 13:40 Ur Leukocyte Esterase Trace (Negative) H 02/02/22 13:40 Urine RBC <1 /hpf (0-5) 02/02/22 13:40 Urine WBC 2 /hpf (0-5) 02/02/22 13:40 Urine Mucus Moderate /hpf (None) H 02/02/22 13:40 Urine Opiates Screen Negative (Negative) 02/02/22 13:40 Urine Methadone Screen Negative (Negative) 02/02/22 13:40 Ur Propoxyphene Screen Negative (Negative) 02/02/22 13:40 Urine Barbiturates Negative (Negative) 02/02/22 13:40 Ur Phencyclidine Scrn Negative (Negative) 02/02/22 13:40 Ur Amphetamine Screen Negative (Negative) 02/02/22 13:40 U Benzodiazepines Scrn Negative (Negative) 02/02/22 13:40 Urine Cocaine Screen Negative (Negative) 02/02/22 13:40 U Cannabinoids Screen Positive (Negative) A 02/02/22 13:40 Urine Alcohol Negative (Negative) 02/02/22 13:40 Coronavirus (PCR) Not Detected (Not Detectd) 02/01/22 18:30 Vital Signs Temp 97.5 F L 02/05/22 06:40 Pulse 64 02/05/22 06:40 Resp 16 02/05/22 06:40 BP 117/55 02/05/22 06:40 Pulse Ox 100 02/05/22 06:40 Patient Condition at Discharge: Stable Plan - Discharge Summary Discharge Rx Participant: No New Discharge Prescriptions: New lamoTRIgine [LaMICtal] 50 mg PO HS 30 Days tab Escitalopram [Lexapro] 10 mg PO HS 30 Days tab Nicotine 21Mg/24Hr Patch [Habitrol] 1 patch TRANSDERM DAILY 14 Days patch Discharge Medication List Escitalopram [Lexapro] 10 mg PO HS 30 Days tab 02/05/22 [Rx] Nicotine 21Mg/24Hr Patch [Habitrol] 1 patch TRANSDERM DAILY 14 Days patch 02/05/22 [Rx] lamoTRIgine [LaMICtal] 50 mg PO HS 30 Days tab 02/05/22 [Rx] Follow up Appointment(s)/Referral(s): [facility] [Outside] - 02/05/22 5:30 pm (with intake.) Miguel Lua Jr, [Primary Care Provider] - 1-2 days Patient Instructions/Handouts: How to Stop Smoking (DC), Depression (DC) Activity/Diet/Wound Care/Special Instructions: Activity and diet as tolerated. Avoid the use of street drugs and alcohol. Take all medications as prescribed. When you are in need of refills on your medications please contact your medical provider and/or outpatient psychiatrist to have this done. Please go to scheduled outpatient appointment for aftercare treatment. If symptoms return or become worse, call the crisis line at and/or go to the nearest emergency room for evaluation Discharge Disposition: HOME SELF-CARE
[2022-02-05] MEDS: LORazepam 1 MG TAB PO PRN (09:47)
== END 2022-02-05 12:20 | disposition home or self-care (01) | DRG 885 ==
LOC: EC 11:55 → 3MHU 20:53
PROVIDERS: ADMIT Psychiatry & Neurology Psychiatry; ATTEND Psychiatry & Neurology Psychiatry
DX: F31.9 Bipolar disorder, unspecified (principal); F23 Brief psychotic disorder; R45.851 Suicidal ideations; F12.10 Cannabis abuse, uncomplicated; F17.290 Nicotine dependence, other tobacco product, uncomplicated; F17.210 Nicotine dependence, cigarettes, uncomplicated; F41.9 Anxiety disorder, unspecified; F60.3 Borderline personality disorder; K59.00 Constipation, unspecified; Z79.899 Other long term (current) drug therapy; Z81.1 Family history of alcohol abuse and dependence; Z95.1 Presence of aortocoronary bypass graft; Z98.890 Other specified postprocedural states; Z71.51 Drug abuse counseling and surveillance of drug abuser; Z28.310 Unvaccinated for COVID-19; Z20.822 Contact with and (suspected) exposure to COVID-19
CPT/HCPCS: 80053; 80061; 80306; 81001; 82075; 83036; 84443; 85025; 87635; 99285

== ENCOUNTER → 2022-11-08 | Outpatient (CLI) | payer OTHER ==
[2022-11-08 18:48] LABS: Basophils # (A) 0.08 X 10*3/uL (0.00-0.10); Basophils % (A) 1.9 %; Eosinophils # (A) 0.17 X 10*3/uL (0.04-0.35); HCT 53.8 % (39.6-50.0); HGB 16.9 g/dL (13.0-17.0); Immature Grans, Automated 0.2 %; Lymphocytes # (A) 0.97 X 10*3/uL (0.90-5.00); Lymphocytes % (A) 22.6 %; MCH 28.4 pg (27.0-32.0); MCHC 31.4 g/dL (32.0-37.0); MCV 90.3 fL (80.0-97.0); Mean Platelet Volume 10.4 fL (9.5-12.2); Monocytes # (A) 0.49 X 10*3/uL (0.20-1.00); Monocytes % (A) 11.4 %; NRBC Per 100 WBC 0 /100 WBCS (0.0-0.0); Neutrophils # (A) 2.58 X 10*3/uL (1.80-7.70); Neutrophils % (A) 59.9 %; Platelet Count 204 X 10*3/uL (140-440); RBC 5.96 X 10*6/uL (4.40-5.60); RDW 12.8 % (11.5-14.5)
[2022-11-08 19:09] LABS: ALT 14 U/L (10-49); AST 13 U/L (14-35); African American GFR (CKD) 96.8 (60.0-200.0); Albumin 4.9 g/dL (3.8-4.9); Albumin/Globulin Ratio 2.45 (1.60-3.17); Alkaline Phosphatase 67 U/L (41-126); BUN/Creat Ratio 11.75 Ratio (12.00-20.00); Bilirubin, Conjugated 0.26 mg/dL (0.20-0.40); Bilirubin,Unconjugated 0.94 mg/dL (0.20-1.00); Blood Urea Nitrogen 14.1 mg/dL (9.0-27.0); Calcium 10.1 mg/dL (8.7-10.3); Chloride 105 mmol/L (96-109); Chol/HDL Ratio 3.01 Ratio; Glucose 94 mg/dL (70-110); LDL Cholesterol,Calculated 79.5 mg/dL (0.0-131.0); Non-African American GFR(CKD) 83.5 (60.0-200.0); Potassium 5.8 mmol/L (3.5-5.5); Sodium 144 mmol/L (135-145); Total Protein 6.9 g/dL (6.2-8.2)
== END | disposition home or self-care (01) ==
LOC: LABWHC1 09:54
PROVIDERS: ATTEND Registered Nurse
DX: Z79.899 Other long term (current) drug therapy (principal)
CPT/HCPCS: 36415; 80053; 80061; 82248; 82306; 84443; 85025